=== PATIENT | female | born 1980 | race Caucasian/White ===

== ENCOUNTER 2021-12-04 00:38 | Day surgery (SDC) | payer OTHER, SELFPAY ==
[2021-11-27 13:31] VITALS: BMI 20.8
--- NOTE | 2021-11-27 13:37 | PC.NURSE ---
Report to the Outpatient Waiting Room, entrance under the green pavilion located off [facility], at time _0600 on date _12/04/21 . OR Time: 729 . - You and your visitor will be asked a series of questions to screen for COVID 19 for your protection. - A mask is required within the hospital. Preoperative COVID Testing Requirements: No COVID Test needed if: (proof is required; if not received patient will have Rapid Test prior to entry) - Patient has received COVID Vaccine at least 14 days prior to procedure date or - Patient has positive COVID test result within last 90 days of surgery date. COVID Test needed if above criteria is not met If not COVID vaccinated a COVID test must be conducted within 72 hours of surgery and patient is asked to isolate self from time of testing until procedure. You will go to the [facility] for your COVID testing. The [facility] is located at the corner of [address] [facility]. You will only be called if COVID results are positive and your surgeon may reschedule your elective surgery date. Patients may have clear liquids (water, carbonated beverages, clear teas, apple juice) until 3 hours prior to surgery with a maximum of 20 ounces. - No food from midnight until time of surgery - Infants may have breast milk until 4 hours before surgery, infant formula 6 hours prior to surgery. - Children will be allowed to drink immediately following surgery. If applicable, please bring a bottle or sippy cup to assist with drinking. Juice, water, soda, and popsicles are readily available. For infants on formula, please bring formula the day of surgery. Pacifiers are allowed. Take the following medications with a SIP of water the morning of surgery: _NONE Medications to discontinue per physician NONE Date to take last dose Please no make-up, nail french, hairspray, perfume, deodorant, or body powder the day of surgery. No jewelry (including any body piercings) or valuables the day of surgery, leave them at home. Please take a shower or bath the night before, or the morning of, surgery with an antibacterial soap. Wear comfortable, loose fitting clothing. Children are encouraged to wear pajamas. - Jewelry must be removed prior to entering the operating room. Rings and piercings that are not removed may be cut off. - The hospital will not accept responsibility for valuables. - Please leave all valuables, including medications, at home the day of surgery. If you are going home after surgery, a licensed box truck driver must drive you home. - NO public transportation without another adult. - We recommend that an adult stay with you for 24 hours following discharge. - We also recommend that you do not drive, make important decision, drink alcoholic beverages, or take any drugs that were not prescribed by your health care provider for at least 24 hours after your discharge time. For Pediatric surgeries, we recommend two adults accompany the child home (only one inside the building at this time). One visitor will be allowed to accompany the patient into the hospital. Patients visitor will be instructed to remain with patient at all times or leave the building. We will allow the visitor to come back to the postoperative area when patient is ready. Follow any additional instructions given to you from your surgeon. Telephone instructions given to ___PATIENT and asked if any additional questions and then verbalized understanding. Patient advised to call surgeon office or pre surgery nurse liaison [phone] if any additional questions.
--- NOTE | 2021-12-03 13:42 | P.PNAN_ITS ---
Anes - Initial Pre Proc Eval Procedure: Operation Date: 12/04/21 07:30 Proposed Procedures p Bilateral Breast Implant Exchange with Capsulectomy - Cesar Epstein MD Date/Time: 12/03/21 13:42 Surgeon: Cesar Epstein MD Pre Op Diagnosis: hx of breast augmentation Patient Data Age: 41 Gender: F Height: 1.55 m Weight: 50 kg Allergies Allergy/AdvReac Type Severity Reaction Status Date / Time Cephalosporins Allergy Severe Anaphylaxis Verified 11/27/21 13:30 peanut Allergy Severe Anaphylaxis Verified 11/27/21 13:30 Penicillins Allergy Severe Anaphylaxis Verified 11/27/21 13:30 Home Medications Medication Instructions Recorded Confirmed Type ondansetron 4 mg disintegrating 4 mg PO Q8H #21 tablet 11/17/21 Rx tablet carisoprodol 350 mg tablet 350 mg PO TID PRN #21 tablet 11/18/21 11/18/21 Rx oxycodone-acetaminophen 5 mg-325 1 tablet PO Q6H PRN #30 tablet 11/18/21 11/18/21 Rx mg tablet Results Review: All pre-operative results and documents have been reviewed as part of the pre-operative evaluation. [facility] Past Medical History Medical History Anxiety Elevated bilirubin Hypokalemia Osteopenia Surgical History Surgical History H/O breast augmentation 12/2012 Family History Family History Father Family history of obesity Patient's father is in good health Family history of diabetes mellitus in first degree relative Diabetes mellitus Mother Patient's mother is in good health Family history of elevated blood lipids Family history of osteoporosis Family history of malignant neoplasm of breast in first degree relative Sibling Patient's sister is in good health Grandparent Family history of lung cancer, Onset Age: 82 Other Family history of malignant neoplasm of esophagus Social History Social History Smoking status: Never smoker Alcohol intake: never Substance use: never Anes - Eval Final PreProcedure Day of Procedure 12/03/21 13:42 Results Review: All pre-operative results and documents have been reviewed as part of the pre-operative evaluation. Informed Consent: The patient's anesthetic plan and its attendant risks and benefits were discussed with the patient/family/POA. Questions were solicited and answers provided to the satisfaction of the patient/family/POA.
[2021-12-04] VITALS (7 sets, daily range): BP systolic 102–120; BP diastolic 56–77; PULSE 47–68; RESP 16–20; TEMP 36.9; O2SAT 99–100
[2021-12-04] MEDS: LACTATED RINGERS 1,000 ML 30 ML IV CONT ×2 (06:57→08:46)
--- NOTE | 2021-12-04 07:01 | WPDHPUPDATE1 ---
History and Physical Update Update Date/Time: 12/04/21 07:01 History and Physical has been reviewed, including an updated exam of the patient. There are NO changes in the patient's condition. Risks, benefits, and alternatives have been discussed and questions answered. Patient agrees to proceed with procedure.
--- NOTE | 2021-12-04 07:12 | WPDANESEPPF ---
Anes - Initial Pre Proc Eval Procedure: Operation Date: 12/04/21 07:30 Proposed Procedures p Bilateral Breast Implant Exchange with Capsulectomy - Cesar Epstein MD Date/Time: 12/04/21 07:12 Surgeon: Cesar Epstein MD Pre Op Diagnosis: hx of breast augmentation Patient Data Age: 41 Gender: F Height: 1.55 m Weight: 51.1 kg Last Vital Signs Temp 36.9 C 12/04/21 06:44 Pulse 51 L 12/04/21 06:44 Resp 16 12/04/21 06:44 BP 104/66 12/04/21 06:44 Pulse Ox 100 12/04/21 06:44 Allergies Allergy/AdvReac Type Severity Reaction Status Date / Time Cephalosporins Allergy Severe Anaphylaxis Verified 12/04/21 06:47 peanut Allergy Severe Anaphylaxis Verified 12/04/21 06:47 Penicillins Allergy Severe Anaphylaxis Verified 12/04/21 06:47 Home Medications Medication Instructions Recorded Confirmed Type ondansetron 4 mg disintegrating 4 mg PO Q8H #21 tablet 11/17/21 12/04/21 Rx tablet carisoprodol 350 mg tablet 350 mg PO TID PRN #21 tablet 11/18/21 12/04/21 Rx oxycodone-acetaminophen 5 mg-325 1 tablet PO Q6H PRN #30 tablet 11/18/21 12/04/21 Rx mg tablet Patient hx anesthesia problems: none Family hx anesthesia problems: none Results Review: All pre-operative results and documents have been reviewed as part of the pre-operative evaluation. [facility] Past Medical History Medical History Anxiety Elevated bilirubin Hypokalemia Osteopenia Surgical History Surgical History H/O breast augmentation 12/2012 Family History Family History Father Family history of obesity Patient's father is in good health Family history of diabetes mellitus in first degree relative Diabetes mellitus Mother Patient's mother is in good health Family history of elevated blood lipids Family history of osteoporosis Family history of malignant neoplasm of breast in first degree relative Sibling Patient's sister is in good health Grandparent Family history of lung cancer, Onset Age: 82 Other Family history of malignant neoplasm of esophagus Social History Social History Smoking status: Never smoker Alcohol intake: never Substance use: never Living arrangements: with family Stu Schneider Final PreProcedure Day of Procedure 12/04/21 07:12 Patient weight: normal Heart: regular rate and rhythm Lungs: clear to auscultation and normal air movement Airway: Mallampati scale class II Neurological: alert and oriented Last oral intake: >/= 8 hours ASA classification: II Emergent: no Anesthetic plan: proceed Anesthesia type and monitoring: general LMA and standard monitoring Results Review: All pre-operative results and documents have been reviewed as part of the pre-operative evaluation. Informed Consent: The patient's anesthetic plan and its attendant risks and benefits were discussed with the patient/family/POA. Questions were solicited and answers provided to the satisfaction of the patient/family/POA.
--- NOTE | 2021-12-04 07:15 | W.PM.PROC2 ---
Procedure Note - Detailed Date of Procedure 12/04/21 Pre-op Diagnosis hx of breast augmentation Post-op Diagnosis Same Procedure Performed Bilateral implant exchange with galaflex Surgeon Cesar Epstein MD Findings Bilateral Tatiana Snyder SoftTouch implants 310 cc Right REF# [id number] SN [id number] Left REF# [id number] SN [id number] Galaflex REF# [id number] Description of Procedure Preoperatively the risks, benefits, alternatives were discussed in extensive detail. I want her to be very realistic about the risks involved as well as expectations. We discussed her goals. I explained what we can and cannot accomplish. She has movement of the implant we explained that smooth implants do have movement. She would like to use Galaflex however she understands that this may provide no improvement, could worsen, and there is no guarantee it will improve her concerns. This was a lengthy open-ended conversation making sure she was well informed. All questions answered to her satisfaction. Consent obtained. Patient was marked in preoperative holding area with her verification. She was taken operating room placed supine on the operating room table. Anesthesia provided by anesthesiology and prepped and draped in a standard sterile fashion. Surgical time-out was taken. 1% lidocaine and 0.25% Marcaine with epinephrine was used to provide a field block. Fifteen blade used to excise the previous IMF scar. Dissection was continued down until the implants were identified and these were removed. I copiously irrigated with saline solution on TUR tubing. I completed superior medial capsulotomy. Laterally completed popcorn capsulorrhaphy as well as on the inferior aspect of the right breast. On the back table the Galaflex was soaking in Betadine implant wash. This was trimmed as necessary. Copiously irrigated the pocket with Betadine implant wash. Wash my gloves. Throughout the procedure we did have Tegaderm nipple Mancilla in placed. The implant was introduced into the pocket using a Sheikh funnel. I then introduced the GalaFLEX. Closed using 2-0 Vicryl followed by 3-0 Monocryl in a running subcuticular 4-0 Monocryl and tissue glue Dressings were placed. The patient was woken taken to the PACU without difficulty. All instrument sponge counts were correct at the end of the case. Estimated Blood Loss 25 Drains No Packing No Pathology None sent Complications No immediate complications Condition Stable Disposition PACU
[2021-12-04] MEDS: BUPIVACAINE HCL 0.25% PF 30 ML VIAL INFILTRATE (07:24)
[2021-12-04] MEDS: NACL 0.9% IRRIG POUR BOTTLE 900 ML, GENTAMICIN SULFATE INJ 160 MG, CLINDAMYCIN PHOS INJ... IRRIGATION (07:24)
[2021-12-04] MEDS: LIDO 1%/EPINEPHRINE 1:100,000 50 ML VIAL 30 ML INFILTRATE (07:24)
[2021-12-04] MEDS: CLINDAMYCIN 900 MG/D5W 50 ML 900 MG/50 ML PIGGYBACK 50 MG IVPB (07:40)
--- NOTE | 2021-12-04 10:30 | SUR.PHASEII ---
No prescriptions were at pharmacy per significant other. RN contacted Dr. Epstein in OR and he will take care of it when he's finished.
== END 2021-12-04 10:20 | disposition home or self-care (01) ==
PROVIDERS: Visit Provider Surgery Plastic and Reconstructive Surgery
PROC: (CPT 19342; principal; 2021-12-04 07:30)
DX: Z45.811 Encounter for adjustment or removal of right breast implant (principal); Z45.812 Encounter for adjustment or removal of left breast implant
CPT/HCPCS: 19370; 19325; 15777 ×2; A9270; J1580; J2250; J2270; J2405; J2704; J7120

== ENCOUNTER 2022-10-15 10:22 | Outpatient (CLI) | payer BC, SELFPAY ==
[2022-10-15 12:37] LABS: Kit Draw Collected
== END 2022-10-15 10:23 | disposition home or self-care (01) ==
LOC: ANHGOSHLAB 10:24
PROVIDERS: PCP Internal Medicine; Visit Provider Clinical Nurse Specialist
DX: E87.6 Hypokalemia (principal); Z13.220 Encounter for screening for lipoid disorders; F41.9 Anxiety disorder, unspecified; E55.9 Vitamin D deficiency, unspecified; Z13.228 Encounter for screening for other metabolic disorders
CPT/HCPCS: 36415

== ENCOUNTER 2024-05-16 13:21 | Outpatient (CLI) | payer OTHER, SELFPAY ==
[2024-05-16 16:52] LABS: Basophils Absolute Auto 0.1 K/mm3 (0.0-0.1); Basophils Percent Auto 0.7 % (0.2-1.2); Eosinophils Percent Auto 0.5 % (0-4.4); Hematocrit 40.9 % (37.0-47.0); Hemoglobin 13.7 g/dL (12.0-15.0); Immature Granulocyte Absolute 0.02 K/mm3 (0.00-0.031); Immature Granulocyte Percent A 0.2 % (0-0.5); Lymphocytes Absolute Auto 1.97 K/mm3 (0.9-3.2); Lymphocytes Percent Auto 23.7 % (18.3-44.2); Mean Corpuscular HGB Conc 33.5 g/dl (32-36); Mean Corpuscular Hemoglobin 29.9 pg (26-34); Mean Corpuscular Volume 89.3 fl (80-100); Mean Platelet Volume 11.8 fl (7.4-10.4); Monocytes Absolute Auto 0.4 K/mm3 (0.1-0.6); Monocytes Percent Auto 4.9 % (2.6-8.5); Neutrophils Absolute Auto 5.8 K/mm3 (1.3-6.7); Platelet Count Result 231 k/mm3 (150-375); Red Blood Count 4.58 M/mm3 (4.2-5.4); Red Cell Distribution Width 11.7 % (11.5-14.5); White Blood Count 8.3 K/mm3 (4.5-10.0)
[2024-05-16 16:56] LABS: Alanine Aminotransferase 19 U/L (6-35); Albumin Level 4.8 g/dL (3.5-5.1); Alkaline Phosphatase 49 U/L (38-126); Anion Gap 8 mmol/L (4-12); Aspartate Amino Transferase 58 U/L (14-36); Bilirubin,Total 1.7 mg/dL (0.2-1.3); Blood Urea Nitrogen 19 mg/dL (7-17); Calcium 9.5 mg/dL (8.4-10.2); Carbon Dioxide 28 mmol/L (22-30); Chloride 101 mmol/L (98-107); Estimated Glomerular Filt Rate > 60; Glucose 85 mg/dL (65-110); Potassium 3.8 mmol/L (3.4-5.0); Sodium 137 mmol/L (137-145)
[2024-05-16 17:19] LABS: Thyroid Stimulating Hormone 0.817 uIU/mL (0.465-4.680)
[2024-05-16 20:27] LABS: Iron 141 ug/dL (37-170)
[2024-05-16 20:34] LABS: Percent Iron Saturation 43 % (20-50)
== END 2024-05-16 13:22 | disposition home or self-care (01) ==
LOC: ANHGOSHLAB 13:22
PROVIDERS: PCP Internal Medicine; Visit Provider Clinical Nurse Specialist
DX: R74.8 Abnormal levels of other serum enzymes (principal); R53.83 Other fatigue; F41.9 Anxiety disorder, unspecified; R17 Unspecified jaundice; R20.2 Paresthesia of skin; R22.30 Localized swelling, mass and lump, unspecified upper limb; Z13.228 Encounter for screening for other metabolic disorders
CPT/HCPCS: 36415; 80053; 82306; 82607; 82728; 83540; 83550; 84443; 85025

== ENCOUNTER 2024-05-16 13:50 | Outpatient (CLI) | payer OTHER, SELFPAY ==
--- NOTE | ~2024-05-16 | US_ITS ---
EXAM: Focused ultrasound examination of the soft tissues of the left axilla HISTORY: R22.30 - Localized swelling, mass and lump, unspecified u... TECHNIQUE: Sonographic evaluation of the soft tissues of the left axilla were performed assessing gra yscale appearance and color Doppler flow. COMPARISON: None. FINDINGS: Sonographic evaluation of the soft tissues of the left axilla demonstrate benign fibrofatty and fibro muscular elements without a cystic or solid lesion of concern. IMPRESSION: No sonographic abnormality is appreciated on focused ultrasound examination. Reviewed, dictated and finalized at location A.
== END 2024-05-16 13:51 | disposition home or self-care (01) ==
LOC: GOSHIMG 13:51
PROVIDERS: PCP Internal Medicine; Visit Provider Clinical Nurse Specialist
DX: R22.32 Localized swelling, mass and lump, left upper limb (principal)
CPT/HCPCS: 76882